=== PATIENT | male | born 1950 | race Caucasian/White ===

== ENCOUNTER 2025-05-22 18:52 | Emergency (ER) | payer MEDICARE, BC ==
[~2025-05-22] VITALS: Ht 162.6 cm; Wt 63.5 kg
[2025-05-22 19:58] VITALS: BP 140/80; O2SAT 99
== END 2025-05-22 19:35 | disposition home or self-care (01) ==
LOC: ER 19:01
DX: T16.1XXA Foreign body in right ear, initial encounter (principal); N40.0 Benign prostatic hyperplasia without lower urinary tract symptoms; E05.90 Thyrotoxicosis, unspecified without thyrotoxic crisis or storm; F32.A Depression, unspecified; R03.0 Elevated blood-pressure reading, without diagnosis of hypertension; Z95.5 Presence of coronary angioplasty implant and graft; Z87.39 Personal history of other diseases of the musculoskeletal system and connective tissue; W44.G1XA Audio device entering into or through a natural orifice, initial encounter; Y93.89 Activity, other specified; Y92.89 Other specified places as the place of occurrence of the external cause; Y99.8 Other external cause status
CPT/HCPCS: A4606; A4663

== ENCOUNTER 2025-06-30 19:48 | Emergency (ER) | payer MEDICARE, BC ==
[~2025-06-30] VITALS: Ht 162.6 cm; Wt 63.5 kg
[2025-06-30 19:54] VITALS: BP 153/95
[2025-06-30 20:18] VITALS: BP 149/92; O2SAT 99
== END 2025-06-30 20:19 | disposition home or self-care (01) ==
LOC: ER 19:50
DX: T16.2XXA Foreign body in left ear, initial encounter (principal); R03.0 Elevated blood-pressure reading, without diagnosis of hypertension; Z95.5 Presence of coronary angioplasty implant and graft; W44.G1XA Audio device entering into or through a natural orifice, initial encounter; Y93.89 Activity, other specified; Y92.89 Other specified places as the place of occurrence of the external cause; Y99.8 Other external cause status; Z86.69 Personal history of other diseases of the nervous system and sense organs
CPT/HCPCS: A4606; A4663

== ENCOUNTER 2025-07-01 15:52 | Emergency (ER) | payer MEDICARE, BC ==
[~2025-07-01] VITALS: Ht 162.6 cm; Wt 63.5 kg
[2025-07-01 15:59] VITALS: BP 116/77
[2025-07-01 17:59] VITALS: BP 116/77; TEMP 97.5; O2SAT 96
== END 2025-07-01 18:00 | disposition home or self-care (01) ==
LOC: ER 15:57
DX: T16.2XXA Foreign body in left ear, initial encounter (principal); Z86.69 Personal history of other diseases of the nervous system and sense organs; Z86.79 Personal history of other diseases of the circulatory system; W44.G1XA Audio device entering into or through a natural orifice, initial encounter; Y93.89 Activity, other specified; Y92.89 Other specified places as the place of occurrence of the external cause; Y99.8 Other external cause status
CPT/HCPCS: A4606; A4663

== ENCOUNTER 2025-09-04 17:19 | Emergency (ER) | payer MEDICARE, BC ==
[~2025-09-04] VITALS: Ht 162.6 cm; Wt 63.5 kg
[2025-09-04 17:41] VITALS: BP 138/84
[2025-09-04 19:04] VITALS: BP 135/80; TEMP 98; O2SAT 99
== END 2025-09-04 19:04 | disposition home or self-care (01) ==
LOC: ER 17:55
DX: T16.1XXA Foreign body in right ear, initial encounter (principal); I51.9 Heart disease, unspecified; Z95.5 Presence of coronary angioplasty implant and graft; W44.9XXA Unspecified foreign body entering into or through a natural orifice, initial encounter; Y93.89 Activity, other specified; Y92.89 Other specified places as the place of occurrence of the external cause; Y99.8 Other external cause status
CPT/HCPCS: A4606; A4663